=== PATIENT | female | born 1995 ===

== ENCOUNTER → 2021-04-11 | Outpatient (CLI) | payer SELFPAY ==
[2021-04-12 11:01] LABS: Candida species (DNA Probe) Negative (NEGATIVE); G. vaginalis (DNA Probe) Positive (NEGATIVE); T. vaginalis (DNA Probe) Negative (NEGATIVE)
== END | disposition home or self-care (01) ==
LOC: LAB SHORT 15:01
PROVIDERS: Obstetrics & Gynecology
DX: N89.8 Other specified noninflammatory disorders of vagina (principal)
CPT/HCPCS: 87480; 87510; 87660

== ENCOUNTER → 2021-08-01 | Outpatient (CLI) | payer BC | END | disposition home or self-care (01) | LOC: LAB 15:28 → LAB SHORT 15:28 | DX: O99.213 Obesity complicating pregnancy, third trimester (principal) | CPT/HCPCS: 87081; 87150 ==

== ENCOUNTER 2021-08-30 04:55 | Inpatient (IN) | payer BC ==
[~2021-08-30] VITALS: Ht 175.3 cm; Wt 123.2 kg
[2021-08-30] MEDS ORDERED: PRENATAL TABLE1 EAC2 PO (05:48)
[2021-08-30] MEDS ORDERED: ASPI81CH PO (05:48)
[2021-08-30 06:10] LABS: Influenza A, PCR NEGATIVE (NEGATIVE); Influenza B, PCR NEGATIVE (NEGATIVE); Resp Syncytial Virus, PCR NEGATIVE (NEGATIVE); SARS-Cov-2 (COVID-19) PCR, MMC NEGATIVE (NEGATIVE)
[2021-08-30 06:12] LABS: BASOPHILS ABSOLUTE AUTO 0.04 K/mm3 (0.00-0.23); BASOPHILS PERCENT AUTO 0 % (0-2); EOSINOPHILS ABSOLUTE AUTO 0.11 K/mm3 (0.00-0.68); EOSINOPHILS PERCENT AUTO 1 % (0-6); Hematocrit 34.8 % (33.0-51.0); Hemoglobin 11.9 g/dL (11.5-16.0); IMMATURE GRAN PERCENT AUTO 1 % (0-1); LYMPHOCYTES PERCENT AUTO 19 % (21-46); MONOCYTES ABSOLUTE AUTO 0.64 K/mm3 (0.16-1.47); MONOCYTES PERCENT AUTO 5 % (4-13); Mean Corpuscular HGB 30.4 pg (26.0-34.0); Mean Corpuscular HGB Conc 34.2 g/dL (31.5-36.5); Mean Corpuscular Volume 89 fL (80-100); Mean Platelet Volume 11.2 fL (9.1-12.4); NEUTROPHILS ABSOLUTE AUTO 8.95 K/mm3 (1.96-9.15); NEUTROPHILS PERCENT AUTO 74 % (41-73); Platelet Count 256 K/mm3 (150-400); RDW Coefficient Variation 13.4 % (11.7-14.2); RDW Standard Deviation 43.5 fL (35.1-46.3); Red Blood Cell Count 3.92 M/mm3 (3.80-5.20); White Blood Cell Count 12.14 K/mm3 (4.00-11.30)
== END 2021-08-31 23:58 | disposition home or self-care (01) | DRG 807 ==
LOC: OBS 04:55 → BC 04:58 → OBS 05:07 → BC 05:10
PROVIDERS: ADMIT Obstetrics & Gynecology
PROC: 10E0XZZ Delivery of Products of Conception, External Approach (ICD-10-PCS; principal; 2021-08-30)
PROC: 10907ZC Drainage of Amniotic Fluid, Therapeutic from Products of Conception, Via Natural or Artificial Opening (ICD-10-PCS; 2021-08-30)
PROC: 00HU33Z Insertion of Infusion Device into Spinal Canal, Percutaneous Approach (ICD-10-PCS; 2021-08-30)
PROC: 3E0R3BZ Introduction of Anesthetic Agent into Spinal Canal, Percutaneous Approach (ICD-10-PCS; 2021-08-30)
PROC: 10H07YZ Insertion of Other Device into Products of Conception, Via Natural or Artificial Opening (ICD-10-PCS; 2021-08-30)
PROC: 0UC97ZZ Extirpation of Matter from Uterus, Via Natural or Artificial Opening (ICD-10-PCS; 2021-08-30)
DX: O48.0 Post-term pregnancy (principal); Z37.0 Single live birth; O99.214 Obesity complicating childbirth; O69.81X0 Labor and delivery complicated by cord around neck, without compression, not applicable or unspecified; O99.824 Streptococcus B carrier state complicating childbirth; Z20.822 Contact with and (suspected) exposure to COVID-19; Z3A.40 40 weeks gestation of pregnancy; Z67.30 Type AB blood, Rh positive; Z87.891 Personal history of nicotine dependence; Z79.82 Long term (current) use of aspirin; O70.0 First degree perineal laceration during delivery
CPT/HCPCS: 0241U; 36415; 51702; 85025; 86850; 86900; 86901; 90471; 90707; A9270; J0290; J1885; J2001; J3010; J7120

== ENCOUNTER 2022-12-21 21:55 | Inpatient (IN) | payer BC ==
[~2022-12-21] VITALS: Ht 175.3 cm; Wt 138.1 kg
[~2022-12-21 21:55] MED LIST: ASPI81CH PO; PRENATAL TABLE1 EAC2 PO
[2022-12-21] MEDS ORDERED: Acetaminophen650 M1 PO (22:16)
[2022-12-21] MEDS ORDERED: ZYRTEC10 M2 PO (22:16)
[2022-12-21 22:35] VITALS: BP 138/74
[2022-12-21 22:35] LABS: BASOPHILS ABSOLUTE AUTO 0.04 K/mm3 (0.00-0.23); BASOPHILS PERCENT AUTO 0 % (0-2); EOSINOPHILS ABSOLUTE AUTO 0.03 K/mm3 (0.00-0.68); EOSINOPHILS PERCENT AUTO 0 % (0-6); Hematocrit 29.7 % (33.0-51.0); Hemoglobin 9.9 g/dL (11.5-16.0); IMMATURE GRAN ABSOLUTE AUTO 0.04 K/mm3 (0.00-0.10); IMMATURE GRAN PERCENT AUTO 0 % (0-1); LYMPHOCYTES ABSOLUTE AUTO 1.89 K/mm3 (0.84-5.20); LYMPHOCYTES PERCENT AUTO 18 % (21-46); MONOCYTES ABSOLUTE AUTO 0.51 K/mm3 (0.16-1.47); MONOCYTES PERCENT AUTO 5 % (4-13); Mean Corpuscular HGB 26.8 pg (26.0-34.0); Mean Corpuscular HGB Conc 33.3 g/dL (31.5-36.5); Mean Corpuscular Volume 80 fL (80-100); Mean Platelet Volume 12.1 fL (9.1-12.4); NEUTROPHILS ABSOLUTE AUTO 8.15 K/mm3 (1.96-9.15); NEUTROPHILS PERCENT AUTO 76 % (41-73); Platelet Count 273 K/mm3 (150-400); RDW Coefficient Variation 13.9 % (11.7-14.2); White Blood Cell Count 10.66 K/mm3 (4.00-11.30)
[2022-12-21 23:22] LABS: Albumin, Blood 2.6 g/dL (3.4-5.0); Albumin/Globulin Ratio 0.6 (0.8-1.8); Bilirubin, Total 0.1 mg/dL (0.1-1.0); Bun/Creatinine Ratio 17.4 (12.0-20.0); Calcium, Blood 8.6 mg/dL (8.5-10.1); Creatinine, Blood 0.63 mg/dL (0.40-1.00); Globulin, Blood 4.3 g/dL (2.2-4.0); Potassium, Blood 3.7 mmol/L (3.5-5.5); Total Protein, Blood 6.9 g/dL (6.4-8.2)
[2022-12-21 23:53] VITALS: BP 125/78
[2022-12-22] VITALS (45 sets, daily range): BP systolic 95–141; BP diastolic 52–85
[2022-12-23 05:16] VITALS: BP 130/66
[2022-12-23 06:17] LABS: Hematocrit 25.9 % (33.0-51.0); Hemoglobin 8.4 g/dL (11.5-16.0); Mean Corpuscular HGB 26.7 pg (26.0-34.0); Mean Corpuscular HGB Conc 32.4 g/dL (31.5-36.5); Mean Corpuscular Volume 82 fL (80-100); Mean Platelet Volume 11.9 fL (9.1-12.4); Platelet Count 206 K/mm3 (150-400); RDW Coefficient Variation 13.9 % (11.7-14.2); RDW Standard Deviation 41.2 fL (35.1-46.3); Red Blood Cell Count 3.15 M/mm3 (3.80-5.20)
[2022-12-23 07:23] VITALS: BP 131/81
[2022-12-23] MEDS ORDERED: IBUP800 PO (08:56)
[2022-12-23] MEDS ORDERED: DOCU100 PO (08:56)
--- NOTE | 2022-12-23 09:39 | NUR ---
DR CRANDALL ANESTHESIA PROVIDER CONTACTED AND REQUESTED FOR CONSULT ON JADELIA HER HEADACHE IS 7/10 WHEN SHE IS LYING DOWN AND 9/10 WHEN SHE IS GETTING UP. SHE STATES SHES HAVING A HARD TIME TAKING CARE OF HER BABY LIKE SHE WOULD LIKE TO AND PERCOCET, TORADOL AND TYLENOL ARE NOT RELIEVING HER PAIN. DR CRANDALL HAS 4 CASES LINED UP TODAY HOWEVER STATES HE WILL COME DOWN FOR CONSULT WHEN HE IS AVAILABLE.
--- NOTE | 2022-12-23 11:35 | NUR ---
Spoke briefly with Dr sandoval from anesthesia regarding headache and he does not believe it is a postdural puncture headache. new orders to administer iv caffeine 200 mg to try. spoke with dameon diaz from OB and she agrees with this plan and also offered some more medications to try if needed.
[2022-12-23 12:53] VITALS: BP 129/74
--- NOTE | 2022-12-23 14:26 | NUR ---
per albert, the caffeine did not help and states her headache is still 7/10. she is in a semi reclined position. niurka harp and dr sandoval notified. new orders from niurka to try stadol now and gave additional orders for flexeril. dr sandoval notified that pt did not improve from caffeine. he suggests conservative measures until tomorrow and if she still has a headache that he man consider a blood patch then.
--- NOTE | 2022-12-23 14:55 | NUR ---
stadol given, encouraged to sleep and asked albert if she wanted to try the flexeril now in addition to the stadol or if she would like to wait. she said she would like to wait. instructed patient to call RN when she woke up. she states her headache is 7/10 when she is lying down and when shes up is 9/10. I also encouraged patient to increase her fluid intake and eat. she has not been eating or drinking much today. she has had sips of her energy drink. encouraged her boyfriend to get her cold brew as she normally has these at home however they were not receptive to this idea. Dr sandoval has additional cases lined up, however states he will come talk and consult with the patient before he leaves the hospital.
[2022-12-23 16:19] VITALS: BP 114/61
--- NOTE | 2022-12-23 16:25 | NUR ---
dr sandoval at doing consult with patient
--- NOTE | 2022-12-23 16:30 | NUR ---
Per dr sandoval he will come in and see the patient tomorrow and consider blood patch if the headache does not improve. the patient states her headache has improved to 3/10 with the stadol. i again educated the patient to keep pushing po fluids and eating appropriately.
[2022-12-23 19:17] VITALS: BP 142/69
[2022-12-24 00:41] VITALS: BP 131/64
[2022-12-24 04:14] VITALS: BP 143/73
[2022-12-24 08:25] VITALS: BP 132/74
--- NOTE | 2022-12-24 09:06 | NUR ---
RX CALLED INTO [facility] ON [address]. RX WRITTEN BY Felice BARLOW CNM. IBUPROFEN 800MG #5O, TAKE 1 TABLET PO Q8 PRN PAIN ELETRIPTAN 20MG #16, TAKE 1 TABLET PO MIGRAINE. MAY REPEAT DOSE Q2 HOURS. DO NOT EXCEED 80MG IN 24 HOURS. FLEXERIL 5MG #42, TAKE 1 TABLET PO TID FOR UP TO 14 DAYS. ZERO REFILLS ON ANY OF THESE RX.
--- NOTE | 2022-12-24 09:49 | NUR ---
PT STATES SHE WOULD LIKE TO GO HOME TODAY. PT STATES HER HEADACHE HAS NOT GOTTEN ANY BETTER THAN 08/18, BUT "IF IT'S NOT GOING TO GET BETTER HERE, I CAN GO HOME AND BE LIKE THIS" Felice BARLOW CNM ENCOURAGING PT TO TAKE MULTIPLE DOSES OF FELXERIL, IT WORKS BEST ONCE IT'S BEEN GIVEN AT LEAST 3 TIMES. PT VERBALIZES SHE WILL TRY THIS. RX HAS BEEN CALLED IN FOR THIS MEDICATION.
== END 2022-12-24 10:50 | disposition home or self-care (01) | DRG 806 ==
LOC: OBS 21:55 → BC 21:56 → OBS 22:09 → BC 22:10
PROVIDERS: ADMIT Advanced Practice Midwife
PROC: 10E0XZZ Delivery of Products of Conception, External Approach (ICD-10-PCS; principal; 2022-12-22)
PROC: 3E0R3BZ Introduction of Anesthetic Agent into Spinal Canal, Percutaneous Approach (ICD-10-PCS; 2022-12-22)
PROC: 00HU33Z Insertion of Infusion Device into Spinal Canal, Percutaneous Approach (ICD-10-PCS; 2022-12-22)
DX: O48.0 Post-term pregnancy (principal); O99.355 Diseases of the nervous system complicating the puerperium; Z37.0 Single live birth; G43.909 Migraine, unspecified, not intractable, without status migrainosus; O90.81 Anemia of the puerperium; D64.9 Anemia, unspecified; O26.03 Excessive weight gain in pregnancy, third trimester; O77.0 Labor and delivery complicated by meconium in amniotic fluid; Z3A.40 40 weeks gestation of pregnancy
CPT/HCPCS: 36415; 51702; 80053; 85025; 85027; 86850; 86900; 86901; 86923; A9270; J0290; J0595; J0706; J1885; J2210; J2405; J2590; J2916; J7120

== ENCOUNTER 2022-12-28 13:07 | Inpatient (IN) | payer BC ==
[~2022-12-28] VITALS: Ht 175.3 cm; Wt 122.5 kg
[2022-12-28] VITALS (10 sets, daily range): BP systolic 134–170; BP diastolic 69–92
[~2022-12-28 13:07] MED LIST changes: +Acetaminophen650 M1 PO; +DOCU100 PO; +IBUP800 PO; +ZYRTEC10 M2 PO
[2022-12-28] MEDS ORDERED: Cyclobenzaprine5 MG PO (16:45)
[2022-12-28 16:51] LABS: BASOPHILS ABSOLUTE AUTO 0.03 K/mm3 (0.00-0.23); BASOPHILS PERCENT AUTO 0 % (0-2); EOSINOPHILS ABSOLUTE AUTO 0.03 K/mm3 (0.00-0.68); EOSINOPHILS PERCENT AUTO 0 % (0-6); Hematocrit 33.7 % (33.0-51.0); Hemoglobin 10.5 g/dL (11.5-16.0); IMMATURE GRAN ABSOLUTE AUTO 0.08 K/mm3 (0.00-0.10); IMMATURE GRAN PERCENT AUTO 1 % (0-1); LYMPHOCYTES PERCENT AUTO 14 % (21-46); MONOCYTES ABSOLUTE AUTO 0.34 K/mm3 (0.16-1.47); MONOCYTES PERCENT AUTO 3 % (4-13); Mean Corpuscular HGB 26.3 pg (26.0-34.0); Mean Corpuscular HGB Conc 31.2 g/dL (31.5-36.5); Mean Corpuscular Volume 85 fL (80-100); Mean Platelet Volume 10.2 fL (9.1-12.4); NEUTROPHILS ABSOLUTE AUTO 8.01 K/mm3 (1.96-9.15); NEUTROPHILS PERCENT AUTO 81 % (41-73); Platelet Count 311 K/mm3 (150-400); RDW Coefficient Variation 14.9 % (11.7-14.2); RDW Standard Deviation 43.5 fL (35.1-46.3); Red Blood Cell Count 3.99 M/mm3 (3.80-5.20); White Blood Cell Count 9.89 K/mm3 (4.00-11.30)
[2022-12-28 17:09] LABS: Albumin/Globulin Ratio 0.7 (0.8-1.8); Bilirubin, Total 0.4 mg/dL (0.1-1.0); Bun/Creatinine Ratio 15.5 (12.0-20.0); Calcium, Blood 8.7 mg/dL (8.5-10.1); Creatinine, Blood 0.65 mg/dL (0.40-1.00); Globulin, Blood 4.3 g/dL (2.2-4.0); Potassium, Blood 3.8 mmol/L (3.5-5.5); Total Protein, Blood 7.3 g/dL (6.4-8.2)
[2022-12-28 18:45] LABS: Source, Urine Clean Catch
[2022-12-28 18:50] LABS: Appearance, Urine Clear (Clear); Bilirubin, Urine Neg (Neg); Blood, Urine 4+ (Neg); Color, Urine Yellow (P-Yellow); Glucose Qualitative, Urine Neg (Neg); Ketones, Urine 4+ (Neg); Leukocyte Esterase, Urine Neg (Neg); Nitrite, Urine Neg (Neg); Protein, Urine Neg (Neg); Specific Gravity, Urine 1.015 (1.003-1.022); Urobilinogen, Urine NORM (Normal)
[2022-12-28 19:29] LABS: Bacteria Mod /hpf; Squamous Epithelial Cells Few /hpf (Few)
--- NOTE | 2022-12-28 21:39 | NUR ---
12/28/222124- GOOD STRENGTH IN HANDS AND FEET; PUPILS REACTIVE; PT ALERT AND ORIENTED X 3; VSS 2134- NO CHANGES FROM ABOVE ASSESSMENT 2144- NO CHANGE FROM INITIAL ASSESSMENT 2154-NO CHANGE FROM INITIAL ASSESSMENT 2204-NO CHANGE FROM INITIAL ASSESSMENT 2214-NO CHANGE FROM INITIAL ASSESSMENT 2224-NO CHANGE FROM INITIAL ASSESSMENT
== END 2022-12-28 22:45 | disposition home or self-care (01) | DRG 776 ==
LOC: ER 13:07 → BC 19:26
PROVIDERS: Student in an Organized Health Care Education/Training Program; ADMIT Obstetrics & Gynecology
PROC: 3E0R3GC Introduction of Other Therapeutic Substance into Spinal Canal, Percutaneous Approach (ICD-10-PCS; principal; 2022-12-28)
DX: O16.5 Unspecified maternal hypertension, complicating the puerperium (principal); O99.355 Diseases of the nervous system complicating the puerperium; M54.2 Cervicalgia; O90.89 Other complications of the puerperium, not elsewhere classified; G97.1 Other reaction to spinal and lumbar puncture; G43.909 Migraine, unspecified, not intractable, without status migrainosus; O99.215 Obesity complicating the puerperium; E66.01 Morbid (severe) obesity due to excess calories
CPT/HCPCS: 62273; 80053; 81001; 83735; 85025; 87086; 96361; 96374; 96375; 99284-25; A9270; J1885; J2765; J7030; J7120